=== PATIENT | male | born 1960 | race Caucasian/White ===

== ENCOUNTER → 2016-11-06 | Day surgery (SDC) | payer BC ==
[~2016-11-06] MED LIST: ALEVE; ALL DAY ALLERGY10 M2 PO; AMBIEN PO; AMBIEN10 MG PO; ANDROGEL75 GM EXT; B100 BALANCE1 TAB.S1; CALTRATE 600+D PO; CRANBERRY450 M1 PO; ESOMEPRAZOLE MA40 MG PO; FINASTERIDE5 M1 PO; FISH OIL 1,001000 M1 PO; FLONASE ALLERG9.9 ML; FLONASE16 GM; GINKGO BILOBA30 MG PO; HYDROCODON-ACE1 EAC1 PO; IBUPROFEN PO; LEVOTHYROXINE100 MCG PO; LEVOXYL0.137 MG PO; LEVOXYL75 MC1 PO; LOVASTATIN20 M1 PO; MAGNESIUM100 MG PO; MELATONIN1 MG PO; MOBIC15 MG PO; MULTI VITAMIN1 EACH PO; MULTIVITAMINS1 EAC2 PO; NEXIUM PO; NORCO 7.5-3251 EACH PO; OMEGA 3-6-9 CO400 MG PO; OMEPRAZOLE20 M2 PO; POTASSIUM99 M1 PO; PRAVACHOL20 MG PO; PRILOSEC PO; PROSCAR5 MG PO; PUMPKIN SEED OIL; SIMVASTATIN40 MG PO; STAHIST AD TAB1 EACH PO; SYNTHROID25 MCG; VIAGRA PO; VIAGRA50 MG PO; VITAMIN B-1100 M1 PO; VITAMIN C100 MG PO; VITAMIN D32000 UNIT PO; VOLTAREN75 MG PO; ZOCOR PO; ZOLPIDEM TARTRA10 M1 PO; [UNRECOGNIZED DRUG - OTHER] PO
--- NOTE | ~2016-11-06 | OR ---
Unit #: [id number] #: [id number] Patient: TAYLOR SHERMAN [id number] [address] [place], [place] [address] [id number] O MR#: [id number] NAME: TAYLOR SHERMAN ROOM: Date of Procedure: 11/06/2016 Admission Date: 11/06/2016 Surgeon: Kehinde Allred M.D. : 1960 Attending Physician: Kehinde Allred M.D. Primary Care Physician: Donald Goldsmith M.D. OPERATIVE REPORT SERVICES PROVIDED 1. Therapeutic bilateral C3-C4, C4-C5 cervical facet joint steroid injections. 2. Fluoroscopy of the cervical spine. 3. IV sedation to facilitate the above. PREOPERATIVE DIAGNOSES 1. Bilateral C3-C4, C4-C5 cervical spondylosis. 2. Other medical history. POSTOPERATIVE DIAGNOSES 1. Bilateral C3-C4, C4-C5 cervical spondylosis. 2. Other medical history. PROCEDURE PERFORMED Cervical facet joint(s) injection using fluoroscopy. FOLLOW-UP/REVIEW OF SYSTEMS/PHYSICAL EXAM Mr. Sherman is here for bilateral C3-C4, C4-C5 cervical facet blocks. He continues home-based physical therapy, cervical stabilization and strengthening, and traction as tolerated. He denies side effects with medication management. He has no medical contraindications to the procedure, that was performed as follows with his consent. INDICATIONS/COMMENTS AND CONSENTS/STATEMENT OF MEDICAL NECESSITY The patient's current medications, allergies and vital signs are documented in the nursing assessment. The risks and benefits of the intervention(s) were discussed with the patient in detail including but not limited to infection, bleeding, meningitis, steroid induced side-effects, nerve damage, paralysis, spinal headaches, neuritis, persistent or worsening pain. The patient wishes to proceed. A separate pain assessment is also in the chart. I have reviewed all of this and have reviewed this with the patient. A current History and Physical is also attached. DESCRIPTION OF THE PROCEDURE(S) 1. Monitoring and positioning: After appropriate discussion it was decided to do the procedure under local anesthesia with supplemental intravenous sedation. Vital signs were monitored in pre, intra and post-procedure phase. Monitoring included EKG, non-invasive BP, pulse oximetry, and temperature. These are documented and were stable. Appropriate supports and restraints were used. Unit #: [id number] #: [id number] Patient: TAYLOR SHERMAN 2. Sedation: A total of 2 mg of Versed and 100 mcg of fentanyl was administered. 3. Facet injection(s)/fluoroscopy: The patient was placed in the prone position. Sterile prep and drape was carried out with ChloraPrep. Positional supports were used. Fluoroscopy of the cervical spine was performed. Local anesthesia was infiltrated with 3 mL of preservative-free 1% lidocaine with bicarbonate. Once anesthesia was established, a 25-gauge Quincke spinal needle was inserted into the C3-C4, C4-C5 cervical facet joint(s). A total of 0.25 mL of Isovue-M 300 was injected using fluoroscopy, which showed the dye to spread uniformly along the cervical facet joints. There was no intravascular or intrathecal spread of contrast. There was some extravasation noted. Bilateral C3-C4, C4-C5 cervical facet joint steroid injections were performed using a total of 0.5 mL of a solution containing 4% lidocaine and 2.5 mg of dexamethasone at each of the above four sites. Fluoroscopic imaging confirmed spread of medication. The needles were then removed intact. The skin was washed off. Prep solution and dressings were applied at the injection sites. The patient tolerated the procedure well. The patient was then observed in the recovery area for 30 minutes. RESULTS The patient had a consistent block with the dose of local anesthetic used. Pain relief was satisfactory. There were no complications or side effects. DISCHARGE CONDITION 1. Patient was discharged in satisfactory condition accompanied by a family member. 2. Post-procedure instructions were given. PLAN(S) Patient was advised to return to the clinic in 2 months for re-assessment and office visit. I thank the patient's referring physician for the opportunity to participate in the care of this patient. Please do not hesitate to call for any questions regarding this patient's pain management. Dictated by... Genoveva Mar/marzena TD: 11/06/2016 20:04 JOB #: [id number] OPERATIVE REPORT X Kehinde Allred MD X PROCEDURE OPERATIVE NOTE
== END | disposition home or self-care (01) ==
LOC: CCSC 07:48
DX: M47.812 Spondylosis without myelopathy or radiculopathy, cervical region (principal); Z98.52 Vasectomy status; E03.9 Hypothyroidism, unspecified; N40.0 Benign prostatic hyperplasia without lower urinary tract symptoms; K21.9 Gastro-esophageal reflux disease without esophagitis; M19.90 Unspecified osteoarthritis, unspecified site; Z87.19 Personal history of other diseases of the digestive system
CPT/HCPCS: J1040; J1100; J2250; J3010